=== PATIENT | male | born 1985 | race Two or more races ===

== ENCOUNTER 2021-08-27 10:24 | Emergency (ER) | payer MEDICAID ==
[~2021-08-27] VITALS: Ht 177.8 cm; Wt 90.7 kg
--- NOTE | 2021-08-27 10:36 | NUR ---
TO ER BED 14, BIBRA 860 AND [employer] 15A21 FROM POLICE STATION C/O SUICIDAL WITH CUT ON BILATERAL FOREARM USING THE WIRE OF FACEMASK, 5150 HOLD BY [employer], FLAT AFFECT, COOPERATIVE, AAOX3, BREATHING EVEN AND NON LABORED, CHANGED INTO A GOWN, BELONGINGS TAKEN, AWAITING MD ARAMBULA
--- NOTE | 2021-08-27 10:43 | NUR ---
TRANSLATOR/INTERPRETER AT BEDSIDE FOR BLOOD DRAW
--- NOTE | 2021-08-27 10:57 | NUR ---
COVID SWAB DONE AND SENT TO LAB
--- NOTE | 2021-08-27 10:57 | NUR ---
URINE COLLECTED AND SENT TO LAB
[2021-08-27 10:58] LABS: BASOPHILS % (AUTO) 0.4 % (0.0-2.0); EOSINOPHILS % (AUTO) 0.1 % (0.0-6.0); HEMATOCRIT 42 % (39-51); HEMOGLOBIN 14.1 g/dL (13.5-17.5); LYMPHOCYTES # (AUTO) 1.3 K/uL (0.8-4.8); LYMPHOCYTES % (AUTO) 12.4 % (20.0-44.0); MEAN CORPUSCULAR HGB CONC 33 g/dl (31.0-36.0); MEAN CORPUSCULAR VOLUME 86 fL (80-96); MONOCYTES # (AUTO) 0.8 K/uL (0.1-1.30); NEUTROPHILS # (AUTO) 8.3 K/uL (1.8-8.9); NEUTROPHILS % (AUTO) 79.1 % (43.0-81.0); PLATELET COUNT (AUTO) 260 K/uL (150-450); RED BLOOD CELL COUNT(AUTO) 4.92 MIL/uL (4.5-6.0); WHITE BLOOD COUNT (AUTO) 10.5 K/uL (4.3-11.0)
[2021-08-27 11:18] LABS: BILIRUBIN,URINE NEGATIVE (NEGATIVE); COLOR,URINE YELLOW (YELLOW); LEUKOCYTE ESTERASE ,URINE NEGATIVE (NEGATIVE); NITRITE, URINE NEGATIVE (NEGATIVE); PROTEIN,URINE TRACE mg/dl (NEGATIVE); UGLUCOSE NEGATIVE (NEGATIVE); UROBILINOGEN,URINE 0.2 EU/dL (0.2)
[2021-08-27 11:23] LABS: ALANINE AMINOTRANSFERASE 29 U/L (12-78); ALBUMIN 4.2 g/dL (3.4-5.0); ALCOHOL, BLOOD < 3 mg/dL (0-0); ALKALINE PHOSPHATASE 84 U/L (46-116); ASPARTATE AMINOTRANSFERASE 31 U/L (15-37); BILIRUBIN,DIRECT 0.2 mg/dL (0.0-0.2); BILIRUBIN,TOTAL 0.7 mg/dL (0.2-1.0); CALCIUM, SERUM 9.3 mg/dL (8.5-10.1); CARBON DIOXIDE 26 mmol/L (21-32); CHLORIDE 104 mmol/L (98-107); GLUCOSE 120 mg/dL (74-106); POTASSIUM 3.9 mmol/L (3.5-5.1); SODIUM SERUM 140 mmol/L (136-145); TOTAL PROTEIN, SERUM 7.8 g/dL (6.4-8.2); UREA NITROGEN, BLOOD 22 mg/dL (7-18)
[2021-08-27 11:26] LABS: ACETAMINOPHEN 0 ug/ml (10-30)
[2021-08-27 12:11] LABS: BACTERIA,URINE None seen /HPF (None Seen); MUCUS,URINE Few /LPF (None Seen); SQUAMOUS EPITHELIAL CELL,UR None Seen /HPF (None Seen)
--- NOTE | 2021-08-27 12:51 | NUR ---
SEEN BY CLINICIAN ART
[2021-08-27] MEDS ORDERED: OLANZAPINE 10 MG VIAL IM ONE ×2 (14:00→14:01)
--- NOTE | 2021-08-27 14:09 | NUR ---
AMBULATED TO THE RESTROOM WITH STEADY GAIT
--- NOTE | 2021-08-27 14:43 | NUR ---
PSYCH PLACEMENT : SW faxed clinicals to the following psychiatric hospitals: [facility] fax [phone] tel [phone] [facility] tel:[phone] FAX:[phone] [facility]: TEL: [phone] [facility] FAX [phone] [facility] fax:[phone] tel:[phone] [facility] FA: [phone] TEL: [phone] [facility] fax: [phone] tel [phone]
--- NOTE | 2021-08-27 14:48 | NUR ---
SS Consult: SS Consult requested for this 36-year-old male who was BIBRA & [employer] after pt. stated at health facility [facility] that he was suicidal per hold. Patient then used face mask wire to self- inflict wounds to both forearms per hold. Upon SS consult, the pt. is A&O X 3 and appears unkempt. The pt. is calm & cooperative throughout interview. Pt. stated, "I am possessed by a demon, I couldn't stop from cutting myself". Per LPS hold, the pt. has previously attempted suicide 5 times and has Hx. of Depression & anxiety. Pt. does admit to previous suicide attempts by OD. Pt. states he has been prescribed Zyprexa in the past but he is non-compliant with medication. Pt. states he has intermittent SI and has AH that tell him to hurt himself. Pt. denies HI and denies current VH. SW explored pt.'s drug & alcohol use. pt. states he uses Meth every 3 days and uses alcohol "once in a while". Pt. stated he lives at home [[address] [address]] with his mother, Savanah Barrera [phone]. Plan: SW faxed clinicals to various [facility] and awaiting placement. Please see other SS note. SW provided pt. with the following addiction and mental health resources and pt. accepted them: ADDICTION RESOURCES For Drugs and Alcohol [facility] Substance Abuse Helpline([facility])-[facility] Outpatient treatment, residential treatment, recovery support for youth and adults [facility] www.[facility] Teen programs for drug/alcohol education and support [facility] [place]. Program for adults, sliding scale provides support and education [facility] [employer] www.thrdPlaceation.org [place]; Outpatient/residential treatment programs; transition to sober living [facility] www.cri-help.org [place]; Outpatient and residential treatment programs; transition to sober living [facility] [place]; Outpatient education and supportive programs for teens and adults [facility] www.oasiswomensrecovery.org [place]; Residential treatment and work program for females only [facility] www.phoSpire Realtyxhouse.org [place]: Outpatient/residential treatment program for teens and young adults [facility] [place] www.[facility].org [place] [facility], inpatient, outpatient for adults and youth [facility] [place], [facility]. [facility]; Outpatient programs and referrals to community residential programs. Alcoholics Anonymous -SFV information and meeting and schedules www.aa-intergroup.org Xr-Ljtf-Cdlepjr https://al-anon.org/ [place] support groups for family of alcoholics. Marijuana Anonymous www.Yubistrict6.org -SFV listing of meetings Narcotics Anonymous www.na.org SOBER LIVING RESOURCES [facility] www.soberhousing.net A non-profit agency that provides resources to recovery and sober living homes throughout [facility] Men's Sober Living Homes: A [facility], [facility] [place] Women's Sober Living Homes: [facility] x [phone] My [address] [place], [facility] [place] Sober Living Homes: [facility] [address] [place], [place] [address] (Specializes in in-depth psychotherapy for emotional distress: anxiety, depression, interpersonal conflicts, life transitions, childhood abuse) [facility] [address] [place] [address] (Assist with solving problem marital difficulties, separation & divorce, aging parents, & grief, chronic & terminal illness) [facility] [address] [place] [address] (Deal with loss & grief, anxiety, marital difficulties) Homebound/Mental Health Services [address] [place] [address] (Provide in-home mental services to people who are incapable of leaving their homes) [facility]eds of the Elderly Senior Service/Resource Center [address] [place] [address] [facility] [address] [place] [address] Mental Health Services [facility] [place] [address] [place] [address] Services: Outpatient therapy for children, teens, young adults, adults, older adults, and families; Psychiatric services, medication support Psychiatric Outpatient Services [facility] Partial Hospitalization and Intensive Outpatient Program (Managed Care and Commerce Only)[address] [facility] [phone] [facility] Partial Hospitalization and Outpatient [id number] Psych[address] [place], [place] [phone] [facility] Partial Hospitalization and Outpatient Iyzbnla[address] [place] [phone] [facility] [place] [id number] [facility] [address] [place], [place] [phone] [facility] Partial Hospitalization and Outpatient [id number] evansNew [place], [phone] Crisis and Hotline Telephone Numbers 24-Hour service unless stated [place] Crisis Hotlines: [place] Mental Health/Crisis Line........684.194.2902 Suicide Prevention Center (24 Hours).......[phone] Suicide Prevention Crisis Center.......[phone] (24 Hours) Assaults Against Women Hotline.........420.537.2782 (24 Hours -- [facility]) Women and Children Crisis Skilled Nursing...........[phone] (24 Hours) Child Abuse Hotline............427.534.7548 ([facility] Children[facility] Services [facility] (24 Hours)..........[phone] Alcoholics Anonymous (24 Hours)..........180.725.8857 Cocaine Anonymous (24 Hours)............496.865.7550 Narcotics Anonymous (24 Hours)..........[phone] [address] Includes [facility] [address], [place] [address]
--- NOTE | 2021-08-27 16:02 | NUR ---
[facility] fax: [phone] tel [phone] requesting new vitals SW notified Jone ortega and RNAnders.
[2021-08-27] MEDS ORDERED: ACETAMINOPHEN 325 MG TABLET ONE (16:38)
[2021-08-27] MEDS ORDERED: ACETAMINOPHEN 325 MG TABLET PO ONE (17:00)
--- NOTE | 2021-08-27 17:16 | NUR ---
Cora ([facility]) patient is going to [facility] [address] [address] [address] [address] Haley accepting [phone] number for report.
--- NOTE | 2021-08-27 17:55 | NUR ---
report given to Haily
--- NOTE | 2021-08-27 17:58 | NUR ---
[facility] CALLED FOR TRANSPORT ETA 60 MINS PER GERTRUDE.
[2021-08-27] MEDS ORDERED: NICOTINE PATCH (7MG) 7 MG PATCH.TD24 TD SCH (18:00)
[2021-08-27 18:50] VITALS: BP 140/88
--- NOTE | 2021-08-27 18:53 | NUR ---
patient picked up by private ambulance going to [facility] in no distress.
== END 2021-08-27 18:52 ==
LOC: ER 10:30
DX: R45.851 Suicidal ideations (principal); I10 Essential (primary) hypertension; Z20.822 Contact with and (suspected) exposure to COVID-19; R45.88 Nonsuicidal self-harm; S59.919A Unspecified injury of unspecified forearm, initial encounter; X58.XXXA Exposure to other specified factors, initial encounter; Y93.89 Activity, other specified; Y92.89 Other specified places as the place of occurrence of the external cause
CPT/HCPCS: 36415; 80048; 80076; 80143; 80307; 80320; 81001; 85025; 87426; 96372; 99285; C9803; J3490; G0480